=== PATIENT | male | born 1965 | race Caucasian/White ===

== ENCOUNTER 2016-11-29 05:30 | Emergency (ER) | payer MEDICAID, MEDICARE ==
--- NOTE | 2016-11-29 06:12 | ED Physician Chart ---
Chief Complaint/HPI - Patient Information Date Seen:: 11/29/16 Time Seen:: 06:00 Chief Complaint:: ALOC History of Present Illness:: THIS IS A 51 YO BLACK MALE BIB IN BY EMS WHO SAID THELY FOUND HIM WONDERING OUR IN THE STREETS. THEY SAID HE WAS PROBABLY HOME AND MAY BE ON SOME TYPE OF DRUG. Allergies:: Allergies Allergy/AdvReac Type Severity Reaction Status Date / Time No Known Allergies Allergy Verified 11/29/16 05:49 Vitals:: Vital Signs - 8 hr 11/29/16 05:30 Temp 98.1 F HR 60 RR 18 BP 150/83 O2 Sat % 98 Historian:: EMS Review:: Nurse's Note Reviewed Review of Systems - Review of Systems General/Constitutional: Other (THIS PATIENT IS UNABLE TO GIVE A REVIEW OF SYSTEMS.) Skin: No skin lesions, No rash, No bruising Head: No headache, No light-headedness Eyes: No loss of vision, No pain, No diplopia ENT: No earache, No nasal drainage, No sore throat, No tinnitus Neck: No neck pain, No swelling, No thyromegaly, No stiffness, No mass noted Cardio Vascular: No chest pain, No palpitations, No PND, No orthopnea, No edema Pulmonary: No SOB, No cough, No sputum, No wheezing GI: No nausea, No vomiting, No diarrhea, No pain, No melena, No hematochezia, No constipation, No hematemesis G/U: No dysuria, No frequency, No hematuria Musculoskeletal: No bone or joint pain, No back pain, No muscle pain Endocrine: No polyuria, No polydipsia Psychiatric: No prior psych history, No depression, No anxiety, No suicidal ideation Hematopoietic: No bruising, No lymphadenopathy Allergic/Immuno: No urticaria, No angioedema Neurological: No syncope, No focal symptoms, No weakness, No paresthesia, No headache, No seizure, No dizziness, No confusion, No vertigo Past Medical History - Past Medical History Obtainable: Yes (THIS PATIENT IS UNABLE TO GIVE A HISTORY) Family History: None Social History: Homeless, Other (UNABLE TO GIVE A RELIABLE HISTORY) Surgical History: other (NOT KNOWN) Medication: Reviewed Family Medical History - Family Member Mother History Unknown: Yes Physical Exam - Physical Examination General/Constitutional: Well-developed, well-nourished, Alert, No distress, GCS 15, Non-toxic appearing, Ambulatory Other Gen/Cons comments:: THE PATIENT RESPONSE TO TOUGH STIMULI BUT WITH DRAWS ASKED QUESTIONS. HE APPEARS UNDER THE INFLUENCE OF SOMETHING. Head: Atraumatic Eyes: Lids, conjuctiva normal, PERRL, EOMI Skin: Nl inspection, No rash, No skin lesions, No ecchymosis, Well hydrated, No lymphadenopathy ENMT: External ears, nose nl, Nasal exam nl, Lips, teeth, gums nl Neck: Nontender, Full ROM w/o pain, No JVD, No nuchal rigidity, No bruit, No mass, No stridor Respiratory: Nl effort/Exclusion, Clear to Auscultation, No Wheeze/Rhonchi/Rales Cardio Vascular: RRR, No murmur, gallop, rubs, NL S1 S2 GI: No tenderness/rebounding/guarding, No organomegaly, No hernia, Normal BS's, Nondistended, No mass/bruits, No McBurney tenderness : No CVA tenderness Extremities: No tenderness or effusion, Full ROM, normal strength in all extremities, No edema, Normal digits & nails Neuro/Psych: Alert/oriented, DTR's symmetric, Normal sensory exam, Normal motor strength, Judgement/insight normal, Mood normal, Normal gait, No focal deficits Misc: normal gait, Normal back, No paraspinal tenderness Labs/Radiology/EKG Results - Lab Results Results: Laboratory Results - last 24 hr 11/29/16 11/29/16 11/29/16 06:20 06:20 06:20 WBC 7.1 RBC 4.73 Hgb 14.3 Hct 43.0 MCV 91.0 MCH 30.3 H MCHC Differential 33.3 RDW 13.9 Plt Count 288 MPV 7.8 Neutrophils % 58.7 Lymphocytes % 25.7 Monocytes % 9.9 Eosinophils % 5.5 H Basophils % 0.2 PT 9.9 INR 1.00 Sodium 137 Potassium 3.5 Chloride 107 Carbon Dioxide 26.0 Anion Gap 7.5 BUN 15 Creatinine 1.0 Est GFR ( Amer) > 60.0 Est GFR (Non-Af Amer) > 60.0 BUN/Creatinine Ratio 15.0 Glucose 101 Calcium 9.7 Total Bilirubin 0.7 AST 34 ALT 29 Alkaline Phosphatase 91 Troponin I Total Protein 7.1 Albumin 4.0 L Globulin 3.1 Albumin/Globulin Ratio 1.3 Triglycerides Cholesterol LDL Cholesterol Direct HDL Cholesterol TSH Ethyl Alcohol 11/29/16 11/29/16 11/29/16 06:20 06:20 06:20 WBC RBC Hgb Hct MCV MCH MCHC Differential RDW Plt Count MPV Neutrophils % Lymphocytes % Monocytes % Eosinophils % Basophils % PT INR Sodium Potassium Chloride Carbon Dioxide Anion Gap BUN Creatinine Est GFR ( Amer) Est GFR (Non-Af Amer) BUN/Creatinine Ratio Glucose Calcium Total Bilirubin AST ALT Alkaline Phosphatase Troponin I 0.01 Total Protein Albumin Globulin Albumin/Globulin Ratio Triglycerides 48 Cholesterol 140 LDL Cholesterol Direct 63 L HDL Cholesterol 58 TSH 0.63 Ethyl Alcohol 11/29/16 06:20 WBC RBC Hgb Hct MCV MCH MCHC Differential RDW Plt Count MPV Neutrophils % Lymphocytes % Monocytes % Eosinophils % Basophils % PT INR Sodium Potassium Chloride Carbon Dioxide Anion Gap BUN Creatinine Est GFR ( Amer) Est GFR (Non-Af Amer) BUN/Creatinine Ratio Glucose Calcium Total Bilirubin AST ALT Alkaline Phosphatase Troponin I Total Protein Albumin Globulin Albumin/Globulin Ratio Triglycerides Cholesterol LDL Cholesterol Direct HDL Cholesterol TSH Ethyl Alcohol < 10 Assessment - Assessment General Assessment: THS PATIENT DENIES HAVING ANY MENTAL PROBLEMS AND DENIES ALL MEDICAL PROBLEMS. ED Septic Shock - . Is Septic Shock (SBP<90, OR Lactate>4 mmol\L) present?: No - <6hrs of presentation: Vital Signs: Vital Signs - 8 hr 11/29/16 05:30 Temp 98.1 F HR 60 RR 18 BP 150/83 O2 Sat % 98 Reassessment (Disposition) - Reassessment Reassessment Condition:: Improved - Diagnosis Diagnosis:: DRUG ABUSE - Aftercare/Follow up Instructions Aftercare/Follow-Up Instructions:: Counseled pt regarding lab results/diagnosis & need follow up, Refer to Discharge Instructions, Counseled pt & family regarding lab results/diagnosis & need follow up - Patient Disposition Discharge/Transfer:: Home Condition at Disposition:: Improved ED Discharge Plan - Patient Disposition Instructions: Psychosis
[2016-11-29 06:38] LABS: % BASOPHILS 0.2 % (0.0-2.0); % EOSINOPHILS 5.5 % (0.0-5.0); % LYMPHOCYTES 25.7 % (20.0-50.0); % MONOCYTES 9.9 % (2.0-10.0); % NEUTROPHILS 58.7 % (40.0-80.0); HEMOGLOBIN 14.3 gm/dL (13.2-17.3); MEAN CORPUSCULAR HEMOGLOBIN 30.3 pg (26.0-30.0); MEAN CORPUSCULAR HGB CONC 33.3 pg (28.0-36.0); MEAN PLATELET VOLUME 7.8 fl; NEUTROPHILE ABSOLUTE 4.2 Th/cmm (1.8-8.0); PLATELET COUNT 288 Th/cmm (150-400); RED BLOOD COUNT 4.73 Mil/cmm (4.30-5.70); RED CELL DISTRIBUTION WIDTH 13.9 % (11.5-20.0); WHITE BLOOD COUNT 7.1 Th/cmm (4.8-10.8)
[2016-11-29 07:06] LABS: ALB/GLOB RATIO 1.3 (1.0-1.8); ALKALINE PHOSPHATASE 91 U/L (34-104); ANION GAP 7.5 (7.0-16.0); BILIRUBIN,TOTAL 0.7 mg/dL (0.3-1.0); BUN - UREA NITROGEN 15 mg/dL (7-25); CALCIUM SERUM 9.7 mg/dL (8.6-10.3); CHLORIDE 107 mEq/L (98-107); CHOLESTEROL 140 mg/dL (<200); GLUCOSE 101 mg/dL (70-105); POTASSIUM SERUM 3.5 mEq/L (3.5-5.1); SGOT 34 U/L (13-39); SGPT/ALT 29 U/L (7-52); SODIUM SERUM 137 mEq/L (136-145); TRIGLYCERIDES 48 mg/dL (<150)
[2016-11-29 07:28] LABS: PROTHROMBIN TIME (TEST) 9.9 SECONDS (9.5-11.5)
[2016-11-29] MEDS ORDERED: Sodium Chloride 0.45% 1,000 ML IV ONE (08:55)
[2016-11-29] MEDS ORDERED: Naloxone 0.4 mg/mL 1mL Vial IV STA (08:56)
[2016-11-29] MEDS ORDERED: Naloxone 0.4 mg/mL 1mL Vial ONE (09:05)
[2016-11-29 10:02] LABS: URINE BILIRUBIN NEGATIVE (NEGATIVE); URINE COLOR YELLOW; URINE GLUCOSE (UA) NEGATIVE (NEGATIVE); URINE KETONE 15 mg/dL (NEGATIVE)
[2016-11-29 10:03] LABS: URINE BLOOD NEGATIVE (NEGATIVE); URINE PROTEIN NEGATIVE (NEGATIVE); URINE UROBILINOGEN 0.2 E.U./dL (0.2 - 1.0)
[2016-11-29 10:24] LABS: AMPHETAMINE URINE NEGATIVE (NEGATIVE); BARBITURATES URINE NEGATIVE (NEGATIVE)
[2016-11-29 10:48] LABS: URINE BACTERIA NONE SEEN /hpf (NONE SEEN); URINE EPITHELIAL CELLS RARE /lpf (FEW); URINE RBC NONE SEEN /hpf (0-5); URINE WBC NONE SEEN /hpf (0-5)
[2016-11-30] MEDS ORDERED: Haloperidol Lactate 5 mg/mL 1mL Vial IM STA (12:39)
[2016-11-30] MEDS ORDERED: Benztropine 1 MG TAB PO ONE (12:42)
[2016-11-30] MEDS ORDERED: Haloperidol Lactate 5 mg/mL 1mL Vial ONE (12:46)
[2016-11-30] MEDS: Benztropine 1 MG TAB PO SCH (16:49)
--- NOTE | 2016-12-01 06:09 | Consultation ---
The patient was seen, discussed with staff, chart is reviewed. HISTORY OF PRESENT ILLNESS: The patient is a 51-year-old male with a history of chronic mental illness, currently placed on a 72-hour hold by the police. On 11/29/2016, the patient has been hearing voices, feeling paranoid, thinking the devils are after him____ and the patient admits that he has been off his medications except for different medication including Seroquel, Zyprexa and Haldol, said Haldol worked well for him. The patient has been somewhat restless at times, was asking to leave the hospital. PAST PSYCHIATRIC HISTORY: Prior hospitalization, history of chronic mental illness. SUBSTANCE ABUSE HISTORY: The patient denied drug use, but his urine toxin was positive for cocaine and he kept talking about a girl putting something in his food. PSYCHOSOCIAL HISTORY: The patient said he has family ____ in [facility] and he usually lives in [place], he has roommates. The patient is on SSI. MENTAL STATUS EXAM: The patient is guarded, irritable ____ well-developed male, his speech is monotonous, he is -[place] patient, thought process currently the patient admits to have an auditory hallucination and he appears to be paranoid. He is oriented x 3. ASSESSMENT: Schizoaffective disorder versus schizophrenia and cocaine and paranoid type acute exacerbation and cocaine abuse. PLAN: We will start Haldol 5 mg p.o. b.i.d., Cogentin 1 mg p.o. b.i.d. The patient is in agreement. The patient would need inpatient psychiatric hospitalization. We will monitor closely for the time being. JOB# [id number]
[2016-12-01] MEDS: Benztropine 1 MG TAB PO SCH (09:36)
--- NOTE | 2016-12-02 01:26 | Progress Notes ---
PSYCHIATRIC PROGRESS NOTE TIME PATIENT SEEN: 10:00 a.m. SUBJECTIVE: Staff was spoken to. The patient is interviewed. Mood is noted to be anxious. The patient is not suicidal or homicidal. The patient is stating that he was doing some cocaine, that is the reason why he got upset and he says that he does not need any medications. Coping skills are noted to be fair. The patient is stating that his sister is there in [place]. He would like to continue treatment on an outpatient basis. No side effects to the medications are noted at this time. ASSESSMENT: The patient is stabilizing, not suicidal or homicidal. PLAN: To discontinue the 5150 and discharge the patient to self. [facility]# [id number]
== END 2016-12-01 11:15 | disposition home or self-care (01) ==
LOC: ER 05:30
DX: F19.10 Other psychoactive substance abuse, uncomplicated (principal); F29 Unspecified psychosis not due to a substance or known physiological condition
CPT/HCPCS: 99284; 96372 ×3; 96374; 84484; 36415; 80300; 84443; 86592; 85025; 85610; 81001; 80329 ×2; 80320; 80053; 80061; 87040 ×2; J2060; J1200; J1630; J7030; X6614; Z7502; Z7610